=== PATIENT | male | born 1965 | race Caucasian/White ===

== ENCOUNTER 2020-10-01 18:00 | Inpatient (IN) | payer BC ==
[~2020-10-01] VITALS: Ht 182.9 cm; Wt 94.7 kg
[2020-10-01 20:19] VITALS: BP 138/82; PULSE 82; TEMP 98.7
--- NOTE | 2020-10-01 20:30 | NUR ---
Report received from JUANIS Lantigua. Pt oriented to room. Admission assessments and med rec complete. Lung sound coarse to auscultation, productive cough noted with clear sputum, O2 sats 92% on 2 L O2. Heart RRR, A&Ox4. Reports mild chest discomfort with coughs. NS running at 75 ml/hr, Remdesivir currently running. Blood and sputum sample collected and sent to lab. Pt denies needs at this time. Will continue to monitor.
[2020-10-01] MEDS ORDERED: ALLEGRA 60MG TA60 MG PO (20:40)
[2020-10-01] MEDS ORDERED: TRICOR145 MG PO (20:41)
[2020-10-01] MEDS ORDERED: ASPIRIN 81M81 MG/TA2 PO (20:42)
[2020-10-01] MEDS ORDERED: DAILY MULTIPLE1 T18 PO (20:43)
[2020-10-01] MEDS ORDERED: ALBUTEROL0.83 MG/ML IH (21:03)
[2020-10-01] MEDS ORDERED: PULMICORT0.5 MG/2 M IH (21:05)
[2020-10-02] VITALS (8 sets, daily range): BP systolic 138–168; BP diastolic 69–94; PULSE 76–88; TEMP 98–100.1
--- NOTE | 2020-10-02 05:29 | NUR ---
Pt rested in bed throughout night. Continues to have hacking cough with scant sputum. Cough worse with deep breaths and movement. T-max of 100.1, dropped to 98.7 without intervention. O2 sats 89-90% on 3L O2 at rest. O2 increased to 4L with sats 90-92%. Reports mild chest discomfort with coughs, declines medication. Robitussin administered x1 for cough, pt reports it did not help. AM labs and 2nd set of blood cultures drawn and sent to lab.
[2020-10-02 07:27] LABS: GRAN # 5.6 (1.4-6.5); GRAN % 78.1 % (42.2-75.2); HEMATOCRIT 40.5 % (42.0-52.0); HEMOGLOBIN 13.6 g/dl (13.5-18.0); LYMPH # 0.9 (1.2-3.4); LYMPH % 12.9 % (20.0-51.0); MEAN CELL VOLUME 90 fl (80.0-100.0); MEAN CORPUSCULAR HEMOGLOBIN 30 pg (27.0-31.0); MEAN CORPUSCULAR HGB CONC 34 g/dl (33.0-37.0); MEAN PLATELET VOLUME 11.7 fl (7.4-10.4); MONO # 0.6 (0.1-0.6); MONO % 8.6 % (1.7-9.3); PLATELET COUNT 291 K/mm3 (130-400); RED BLOOD COUNT 4.48 M/mm3 (4.20-5.60); REDCELL DISTRIBUTION WIDTH-CV 12.5 % (11.5-14.5)
[2020-10-02 08:05] LABS: CALCIUM 8.4 mg/dL (8.4-10.2); CREATININE, serum 0.89 (0.66-1.25); POTASSIUM 4.8 mmol/L (3.4-5.0)
--- NOTE | 2020-10-02 08:36 | NUR ---
Pt awake and alert upon entry, no C/O pain, currently on 4 lpm O2, shift assessments complete, left Pt call light in reach.
--- NOTE | 2020-10-02 16:24 | NUR ---
The patient is positive for COVID. [facility] contacted the patient's , Payton (ph#[phone]), to complete intake. The patient lives in [place] with his and son. His son is a student at [employer] and is living in [place] at this time. Payton reports that the patient's PCP is Dr. Hector Alvarez in [place] and he receives his medications from [facility]. The patient does not have a DPOA-HC. Payton states that her and the patient were talking about a DPOA-HC and that they would be interested in obtaining a DPOA-HC form. [facility] notified the patient's RN and provided him with a form. Payton reports that the plan is for the patient to return back home with her upon discharge. The patient is currently on 4-6 liters of oxygen. SW to continue to follow.
--- NOTE | 2020-10-02 18:00 | NUR ---
Pt resting in the room, has had an increased need for O2 during the day to 5 lpm, NC changed to a high flow, is able to maintain +90% sats on current setting. VS have remained stable.
--- NOTE | 2020-10-02 18:48 | NUR ---
Report received from JUANIS Lantigua. Pt sitting up in chair, denies needs at this time. Call light in reach.
--- NOTE | 2020-10-02 19:45 | NUR ---
Shift assessment complete. Heart RRR, A&Ox4. Lungs sounds coarse to auscultation. Struggles to take deep breaths, coughs and reports chest pain with deep breaths. Breathing shallow and labored. Reports SOA with exertion, coughs, deep breaths. Wearing HFNC with bubbler at 5 L O2, sats between 92-94%. Mild cough still present, improved since last night. Afebrile at this time.
[2020-10-03 04:27] VITALS: BP 170/80; PULSE 70; TEMP 98.3
--- NOTE | 2020-10-03 06:24 | NUR ---
Rested in bed throughout night. Remained on 5L O2 HFNC most of night. Keyana [employer] AD[employer]IVE [employer]ISTANT reported to this RN around 0400 that pt reported a 20 minute coughing fit, O2 sats at 78%. Keyana increased O2 up to 10L before sats came back up to 90s. Pt was slowly weaned back down to 5L with sats of 90-91%. By 0430, sats were at 94% on 5L. This RN rechecked sats at 0600, pt was at 88% on 5L. Increased to 6L, sats arielle to 90%. Pt currently on 6L. Cough and SOA worsening. Remained afebrile throughout shift.
--- NOTE | 2020-10-03 08:40 | NUR ---
Pt sitting up in the recliner upon entry, has visible dyspnea at rest, currently on 5 lpm high flow NC, O2 saturation at 93%, has difficulty conversing between breaths, fully alert. shift assessments complete, left Pt sitting in the recliner, call light in reach.
[2020-10-03 09:51] VITALS: BP 162/84; PULSE 84; TEMP 99.9
[2020-10-03 11:00] VITALS: BP 158/74; PULSE 89; TEMP 98.8
[2020-10-03 15:53] VITALS: BP 148/82; PULSE 84; TEMP 98.4
--- NOTE | 2020-10-03 19:01 | NUR ---
Received report from Grzegorz. Seen patient awake, sitting in the recliner. On O2 at 5lpm via high flow nasal cannula. With INT on right forearm. Call light within reach.
[2020-10-03 19:57] VITALS: BP 149/81; PULSE 77; TEMP 98
--- NOTE | 2020-10-03 20:24 | NUR ---
Night meds given. Patient requested for robitussin syrup. He denies pain. He states he feels much better. He uses his incentive spirometer and reports and gets to reach level of 1500. He is afebrile.
[2020-10-03 23:25] VITALS: BP 141/72; PULSE 80; TEMP 98.2
--- NOTE | 2020-10-04 00:52 | NUR ---
Rounds done. Patient asleep on bed.
[2020-10-04 04:35] VITALS: BP 132/79; PULSE 69; TEMP 98.1
--- NOTE | 2020-10-04 06:41 | NUR ---
Patient had uneventful night. Decreased oxygen level to 3.5l via nasal cannula high flow. SPO2 was at 95% and above. He was afebrile. Denies pain. Still with cough and robitussin syrup given this morning.
[2020-10-04 07:29] LABS: CALCIUM 8.6 mg/dL (8.4-10.2); CREATININE, serum 0.91 (0.66-1.25); MAGNESIUM 2.4 mg/dL (1.6-2.3); POTASSIUM 4.1 mmol/L (3.4-5.0)
[2020-10-04 08:29] LABS: GRAN # 6.8 (1.4-6.5); GRAN % 70.6 % (42.2-75.2); HEMATOCRIT 39.4 % (42.0-52.0); HEMOGLOBIN 13.2 g/dl (13.5-18.0); LYMPH # 1.7 (1.2-3.4); LYMPH % 18.2 % (20.0-51.0); MEAN CELL VOLUME 90 fl (80.0-100.0); MEAN CORPUSCULAR HEMOGLOBIN 30 pg (27.0-31.0); MEAN CORPUSCULAR HGB CONC 34 g/dl (33.0-37.0); MONO % 10.5 % (1.7-9.3); RED BLOOD COUNT 4.36 M/mm3 (4.20-5.60); REDCELL DISTRIBUTION WIDTH-CV 12.5 % (11.5-14.5)
[2020-10-04 08:31] LABS: PLATELET COUNT 405 K/mm3 (130-400)
[2020-10-04 08:34] VITALS: BP 144/748; PULSE 75; TEMP 97.5
--- NOTE | 2020-10-04 08:55 | NUR ---
Pt awake and alert upon entry, sitting in the recliner, no C/O pain this morning, currently on 1.5 lpm and saturating 93 - 95%, talkative and appropriate. Shift assessments complete, left Pt call light in reach.
[2020-10-04 10:02] LABS: ALBUMIN 3.4 gm/dL (3.5-5.0); BILIRUBIN UNCONJUGATED 0.3 mg/dL (0.0-1.1); BILIRUBIN,DIRECT 0.1 mg/dL (0.0-0.4); BILIRUBIN,TOTAL 0.4 mg/dL (0.0-1.0); TOTAL PROTEIN 6.5 gm/dL (6.4-8.2)
[2020-10-04 12:29] VITALS: BP 147/72; PULSE 80; TEMP 98.1
[2020-10-04 15:42] VITALS: BP 132/84; PULSE 82; TEMP 98.2
--- NOTE | 2020-10-04 18:58 | NUR ---
Pt rtesting in the room today, titrated Pt off O2, currently saturating 90%+, no C\O pain throughout the day. VS have remained stable.
--- NOTE | 2020-10-04 19:20 | NUR ---
Received report from Grzegorz. Seen patient lying on bed, awake. He is on room air now.He denies needs at this time.
[2020-10-04 20:05] VITALS: BP 144/85; PULSE 78; TEMP 98.3
[2020-10-04 23:15] VITALS: BP 152/83; PULSE 79; TEMP 98
[2020-10-05 05:12] VITALS: BP 134/88; PULSE 71; TEMP 97.8
--- NOTE | 2020-10-05 06:22 | NUR ---
Patient had uneventful night. He was afebrile. Maintained on room air with SPO2 of 96%. No complains made overnight.
[2020-10-05 08:00] VITALS: BP 134/68; PULSE 75; TEMP 98.1
--- NOTE | 2020-10-05 09:40 | NUR ---
PT INDEPENDENT IN ROOM, PLAN ON DISCHARGE LATER TODAY. SC REPORTS LG LOOSE STOOL THIS AM. PROBIOTICS ON BOARD THIS AM. PT DENIES SOB, OR RESPIRATORY DIFFICULTIES. VSS, PT TOLERATING PO INTAKE AND FOOD.
[2020-10-05] MEDS ORDERED: TYLENOL 325MG325 MG PO (12:33)
[2020-10-05] MEDS ORDERED: MONODOX100 PO (12:33)
[2020-10-05] MEDS ORDERED: DECADRON6 MG PO (12:34)
[2020-10-05 13:05] VITALS: BP 130/78; PULSE 76; TEMP 97.7
--- NOTE | 2020-10-05 17:11 | NUR ---
REVIEWED DISCHARGE INSTRUCTIONS ANSWERED QUESTIONS, TOOK TO ED ENTRANCE AND LEFT WITH .
== END 2020-10-05 17:00 | disposition home or self-care (01) | DRG 177 ==
LOC: PEDS 18:00
PROVIDERS: Internal Medicine; ADMIT Hospitalist
DX: U07.1 COVID-19 (principal); J12.89 Other viral pneumonia; J96.01 Acute respiratory failure with hypoxia; E78.1 Pure hyperglyceridemia
CPT/HCPCS: 99222-AI; 99232-AI; 99233-AI; 99239; A9284; J0696; J1100; J1650; J7030; J7050; J8540